=== PATIENT | male | born 1950 | race Hispanic/Latino ===

== ENCOUNTER 2018-03-21 05:24 | Day surgery (SDC) | payer OTHER ==
[~2018-03-21] VITALS: Ht 177.8 cm; Wt 84.5 kg
[~2018-03-21 05:24] MED LIST: AMLO5TAB9 PO; ASPI-555 PO; ATOR40TA71 PO; CARV12.511 PO; FERR-82 PO; FURO20TA4 PO; GLIP10TA9 PO; INSU100I35 SQ; LISI40TA4 PO; METF750T2 PO
[2018-03-21] MEDS ORDERED: SODIUM CHLORIDE 0.9% 1000ML 1,000 ML IV ONE (05:55)
[2018-03-21 06:01] VITALS: BP 148/73
[2018-03-21] MEDS ORDERED: PROPOFOL 10 MG/ML 20ML VIAL IV ONE (07:11)
[2018-03-21 07:39] VITALS: BP 107/53
[2018-03-21 07:44] VITALS: BP 101/62
[2018-03-21 07:49] VITALS: BP 126/63
[2018-03-21 07:52] VITALS: BP 135/61
== END 2018-03-21 08:17 | disposition home or self-care (01) ==
LOC: ENDO 05:24 → DAH 05:24 → ENDO 08:17
PROVIDERS: ATTEND Internal Medicine
DX: Z12.11 Encounter for screening for malignant neoplasm of colon (principal); K63.5 Polyp of colon; D50.9 Iron deficiency anemia, unspecified; K21.0 Gastro-esophageal reflux disease with esophagitis; K31.89 Other diseases of stomach and duodenum; I12.9 Hypertensive chronic kidney disease with stage 1 through stage 4 chronic kidney disease, or unspecified chronic kidney disease; E11.22 Type 2 diabetes mellitus with diabetic chronic kidney disease; N18.9 Chronic kidney disease, unspecified; M81.0 Age-related osteoporosis without current pathological fracture; F32.9 Major depressive disorder, single episode, unspecified; F41.9 Anxiety disorder, unspecified; E78.5 Hyperlipidemia, unspecified; Z79.84 Long term (current) use of oral hypoglycemic drugs; Z79.899 Other long term (current) drug therapy; Z98.890 Other specified postprocedural states
CPT/HCPCS: 43239; 45380; 45385; 82948 ×2; 88305; 93005; A4606; J2704; J7030